=== PATIENT | female | born 1990 | race Caucasian/White ===

== ENCOUNTER 2021-04-22 12:36 | Emergency (ER) | payer OTHER, SELFPAY ==
[2021-04-22 12:48] VITALS: BP 106/71; PULSE 84; RESP 18; TEMP 36.6; O2SAT 100
--- NOTE | 2021-04-22 13:35 | ED.URI ---
HPI - URI/Sore Throat General Chief Complaint: Upper Respiratory Infection Stated Complaint: congestion/sore throat Source: patient and RN notes reviewed Mode of arrival: ambulatory History of Present Illness HPI Narrative: This is a 31-year-old female who presented to urgent care with complaints of sore throat and sinus issues, nasal congestion, chills, night sweats and productive fever since Monday. Patient tested for Covid on Monday and Monday with a rapid and then send out both negative. The patient denies SOB, CP, palpitation, extremity numbness, lightheadedness, dizziness, constipation, diarrhea, chills, or fever. MD elicited complaint: sore throat, nasal congestion and sinus pain Related Data Home Medications Medication Instructions Recorded Confirmed buspirone mg 04/22/21 etonogestrel-ethinyl estradiol vag ring VAGINAL 04/22/21 [NuvaRing] Allergies Allergy/AdvReac Type Severity Reaction Status Date / Time ibuprofen Allergy Mild swelling Unverified 03/08/09 14:13 Review of Systems Review of Systems: A 14 organ system Review of Systems was performed and pertinent positives included in the HPI, otherwise remaining ROS is negative. [facility] Family History Family History (Updated 04/22/21 @ 13:37 by NICKY Boogie) Other Family history non-contributory Exam Narrative: GENERAL: This is a well-nourished, well-developed patient, in no apparent distress. HEAD: normocephalic, atraumatic. Maxillary tenderness EYES: PERRL. Sclera clear/white. Vision is grossly intact. EARS: External ears normal, auditory canals clear and without drainage, TMs normal without perforation. Hearing grossly intact. NOSE: External nose normal with no obvious nasal discharge, nares without redness, no rhinorrhea. THROAT: Mucous membranes moist, posterior pharynx slight erythematous NECK: Neck supple, non-tender without lymphadenopathy, masses or thyromegaly. CARDIOVASCULAR: Regular rate and rhythm without murmurs, gallops, or rubs. RESPIRATORY: Clear to auscultation. Breath sounds equal bilaterally. No wheezes, rales, or rhonchi. GASTROINTESTINAL: Abdomen soft, non-tender, nondistended. Bowel sounds are active. No hepato-splenomegaly, or palpable masses. No guarding. SKIN: warm, intact with no suspicious lesions or rash, good texture and turgor. NEURO: awake, alert, and oriented to person, place and time. There were no obvious focal neurologic abnormalities. Steady gait EXTREMITIES: Normal range of motion. No edema. No calf tenderness. Negative Homans sign bilaterally. BACK: Nontender without deformity or crepitance. No flank tenderness. Course Course Emergency Course: Patient will be treated for cellulitis given Augmentin 875 twice daily x7 days instructed to use [id number] decongestion and Tylenol for fever Vital Signs Vital signs: Vital Signs Temperature 97.9 F 04/22/21 12:48 Pulse Rate 84 04/22/21 12:48 Respiratory Rate 18 04/22/21 12:48 Blood Pressure 106/71 04/22/21 12:48 Pulse Oximetry 100 04/22/21 12:48 Temperature 97.9 F 04/22/21 12:48 Pulse Rate 84 04/22/21 12:48 Respiratory Rate 18 04/22/21 12:48 Blood Pressure 106/71 04/22/21 12:48 Pulse Oximetry 100 04/22/21 12:48 MDM - URI/Sore Throat Differential Diagnosis Differential diagnosis: Likely upper respiratory infection, sinusitis, viral infection and pharyngitis Discharge Plan Discharge Clinical Impression: Sinusitis Qualifiers: Sinusitis location: maxillary Chronicity: acute Recurrence: non-recurrent Qualified Code(s): J01.00 - Acute maxillary sinusitis, unspecified Patient Disposition: Home, Self-Care Condition: Stable Instructions: Antibiotic Form, Sinusitis (ED) Additional Instructions: What are the symptoms of sinusitis? - Common symptoms of sinusitis include: ?Stuffy or blocked nose ?Thick yellow or green discharge from the nose ?Pain in the teeth ?Pain or pressure in the face - This of
== END 2021-04-22 13:40 | disposition home or self-care (01) ==
PROVIDERS: Emergency Provider Nurse Practitioner
DX: J01.00 Acute maxillary sinusitis, unspecified (principal)
CPT/HCPCS: 99213; G0463